=== PATIENT | female | born 1945 | race Two or more races ===

== ENCOUNTER 2023-08-18 12:50 | Outpatient (CLI) | payer OTHER | END 2023-08-18 13:04 | disposition home or self-care (01) | LOC: RAD 12:50 | DX: M25.511 Pain in right shoulder (principal) ==

== ENCOUNTER 2023-11-25 10:56 | Outpatient (CLI) | payer OTHER | END 2023-11-25 11:03 | disposition home or self-care (01) | LOC: RAD 10:56 | PROVIDERS: ATTEND Internal Medicine | DX: M17.2 Bilateral post-traumatic osteoarthritis of knee (principal) ==

== ENCOUNTER 2023-12-30 11:56 | Emergency (ER) | payer OTHER ==
[~2023-12-30] VITALS: Ht 152.4 cm; Wt 53.1 kg
[2023-12-30 14:27] LABS: HEMATOCRIT 43.7 % (36.0-45.00); HEMOGLOBIN 14.6 g/dL (12.0-15.00); MEAN CELL VOLUME 89.2 fL (80.00-100.00); MEAN CORPUSCULAR HEMOGLOBIN 29.8 pg (27.00-32.0); MEAN CORPUSCULAR HGB CONC 33.4 g/dl (32.0-36.0); PLATELET COUNT 332 K/uL (150-450); RED CELL DISTRIBUTION WIDTH 12.6 % (11.5-14.5)
[2023-12-30 14:31] LABS: URINE APPEARANCE Clear; URINE BILIRRUBIN Negative (NEGATIVE); URINE BLOOD Small; URINE COLOR Yellow; URINE GLUCOSE Negative (NEGATIVE); URINE KETONE Trace (NEGATIVE); URINE LEUKOCYTE Negative; URINE NITRATE Negative; URINE PROTEIN Negative (NEGATIVE); URINE UROBILINOGEN 0.2 E.U./dl
[2023-12-30 14:32] LABS: URINE EPITHELIAL CELLS 3.2 uL (0.0-38.8); URINE RBC 6.4 uL (0.0-20.8); URINE WBC 3.2 uL (0.0-23.2)
[2023-12-30 14:34] LABS: URINE CAST 0.45 uL (0.0-1.40)
[2023-12-30 15:06] LABS: CALCIUM 9.6 mg/dL (8.5-10.1); CREATININE SERUM 0.56 mg/dL (0.55-1.02); GFR 104.97; POTASSIUM 3.9 mEq/L (3.5-5.1)
== END 2023-12-30 18:39 | disposition home or self-care (01) ==
LOC: ER 11:58
PROVIDERS: General Practice
DX: R53.81 Other malaise (principal); Z88.2 Allergy status to sulfonamides; Z87.09 Personal history of other diseases of the respiratory system; Z20.822 Contact with and (suspected) exposure to COVID-19